=== PATIENT | male | born 1940 | race Two or more races ===

== ENCOUNTER 2017-07-11 17:32 | Inpatient (IN) | END 2017-07-15 20:45 | disposition short-term general hospital (02) | DRG 92 ==

== ENCOUNTER 2017-07-15 21:53 | Inpatient (IN) | END 2017-07-21 17:40 | DRG 901 ==

== ENCOUNTER 2017-07-21 18:35 | Inpatient (IN) | END 2017-07-29 09:40 | disposition home health service (06) | DRG 949 ==